=== PATIENT | male | born 1990 | race Caucasian/White ===

== ENCOUNTER 2021-04-20 13:07 | Emergency (ER) | payer BC ==
[~2021-04-20] VITALS: Ht 170.2 cm; Wt 81.8 kg
[2021-04-20 13:17] VITALS: TEMP 98
[2021-04-20 13:48] LABS: HEMATOCRIT 46.2 % (42.0-52.0); MEAN CELL VOLUME 85 fl (80.0-100.0); MEAN CORPUSCULAR HEMOGLOBIN 29 pg (27.0-31.0); MEAN CORPUSCULAR HGB CONC 35 g/dl (33.0-37.0); MEAN PLATELET VOLUME 9.2 fl (7.4-10.4); PLATELET COUNT 324 K/mm3 (130-400); RED BLOOD COUNT 5.45 M/mm3 (4.20-5.60); REDCELL DISTRIBUTION WIDTH-CV 11.9 % (11.5-14.5)
[2021-04-20 14:02] LABS: ALBUMIN 5.3 gm/dL (3.5-5.0); BILIRUBIN,TOTAL 1.1 mg/dL (0.2-1.2); CREATININE, serum 1.05 mg/dL (0.72-1.25); POTASSIUM 3.6 mmol/L (3.5-4.5); TOTAL PROTEIN 8.1 gm/dL (6.2-8.1)
[2021-04-20 14:25] LABS: LYMPHOCYTE 2 % (20.0-51.0); NEUTROPHILS 95 % (42.0-75.2); PLATELET ESTIMATE NORMAL (NORMAL)
[2021-04-20] MEDS ORDERED: ZOFRAN ODT4 MG PO (17:29)
[2021-04-20 17:45] VITALS: BP 1428/77; PULSE 75
== END 2021-04-20 17:51 | disposition home or self-care (01) ==
LOC: COL.ER 13:07
PROVIDERS: Physician Assistant
DX: R10.13 Epigastric pain (principal); D72.829 Elevated white blood cell count, unspecified
CPT/HCPCS: J0500; J1885; J2405; Q9967

== ENCOUNTER 2021-08-28 06:43 | Day surgery (SDC) | payer BC ==
[~2021-08-28] VITALS: Ht 170.2 cm; Wt 79.8 kg
[~2021-08-28 06:43] MED LIST: ZOFRAN ODT4 MG PO
[2021-08-28] MEDS ORDERED: NEXIUM 40MG40 MG PO (06:58)
[2021-08-28 07:03] VITALS: BP 128/75; PULSE 72; TEMP 97.5
[2021-08-28 08:25] VITALS: BP 118/67; PULSE 70
[2021-08-28 08:30] VITALS: BP 115/89; PULSE 68
[2021-08-28 08:45] VITALS: BP 126/81; PULSE 67
--- NOTE | 2021-08-28 09:30 | NUR ---
Dr. Kang in to see patient. Patient's questions answered. Patient then escorted out to patient entrance via ambulation along with significant other. Patient left in the care of his S.O.
--- NOTE | 2021-08-28 09:35 | NUR ---
0825 Pt returns from endo procedure via cart and RN assist to [facility]. Pt ambulates from cart to recliner with RN assist. Monitors on and alarms set. Call light within reach. Report received from [facility] [place]. Pt alert and oriented. Pt requests water and applesauce. Pt denies any pain or nausea. Pt's present in room. 0835 Pt taking food and drink well. No complications noted. 0858 Discharge instructions given to pt and pt's . All questions answered to their satisfaction. Handed to pt are a thank you card and discharge information. Waiting on Dr. Kang to visit with pt prior to discharge. 0935 Pt transferred out of the hospital via wheelchair and Joselyn assist, to private vehicle driven by pt's .
== END 2021-08-28 09:35 | disposition home or self-care (01) ==
LOC: SDCO 06:43
DX: K21.9 Gastro-esophageal reflux disease without esophagitis (principal)
CPT/HCPCS: J2704; J7030